=== PATIENT | female | born 1985 | race Caucasian/White ===

== ENCOUNTER 2018-11-19 19:44 | Emergency (ER) | payer MEDICAID, OTHER ==
[~2018-11-19] VITALS: Ht 157.5 cm; Wt 53.9 kg
[2018-11-19 19:46] VITALS: Ht 157.5 cm; Wt 53.9 kg
[2018-11-19] MEDS ORDERED: LIDOCAINE 2%/EPI MPF (SDV) 20 ML VIAL INJ STA (21:22)
[2018-11-19] MEDS ORDERED: ACETAMINOPHEN 500 MG TAB PO STA (21:22)
[2018-11-19] MEDS ORDERED: DIPHTH/TET/ACEL PERTUSS (ADULT) 0.5 ML VIAL IM* ONE (21:30)
[2018-11-19 22:49] VITALS: BP 138/80; PULSE 84; RESP 20
== END 2018-11-19 22:53 | disposition home or self-care (01) ==
LOC: FTE 19:44
DX: S51.811A Laceration without foreign body of right forearm, initial encounter (principal); F17.210 Nicotine dependence, cigarettes, uncomplicated; W23.0XXA Caught, crushed, jammed, or pinched between moving objects, initial encounter; Y92.810 Car as the place of occurrence of the external cause; Z23 Encounter for immunization
CPT/HCPCS: 12001; 90471; 90715; Z7502; Z7610

== ENCOUNTER 2018-11-21 22:00 | Emergency (ER) | payer MEDICAID ==
[~2018-11-21] VITALS: Ht 154.9 cm; Wt 53.5 kg
[2018-11-21 22:03] VITALS: BP 113/70; PULSE 87; RESP 18; Ht 154.9 cm; Wt 53.5 kg
== END 2018-11-21 23:45 | disposition home or self-care (01) ==
LOC: FTE 22:00
DX: Z48.01 Encounter for change or removal of surgical wound dressing (principal); F17.210 Nicotine dependence, cigarettes, uncomplicated
CPT/HCPCS: 99281